=== PATIENT | female | born 1985 | race Caucasian/White ===

== ENCOUNTER 2017-11-21 18:51 | Emergency (ER) | payer BC, OTHER ==
[~2017-11-21] VITALS: Ht 162.6 cm; Wt 136.5 kg
[2017-11-21 19:03] VITALS: BP 153/94
--- NOTE | 2017-11-21 19:22 | NUR ---
PT.AMBULATED TO ER [facility]
--- NOTE | 2017-11-21 19:30 | NUR ---
Patient being evaluated by [facility] ASSISTANT at bedside.
--- NOTE | 2017-11-21 19:56 | NUR ---
Patient discharged with v/s stable. Written and verbal after care instructions given and explained. Patient alert, oriented and verbalized understanding of instructions. Ambulatory with steady gait. All questions addressed prior to discharge. ID band removed. Patient advised to follow up with PMD. Rx of MOTRIN 800 MG, ROBAXIN 500 MG given. Patient educated on indication of medication including possible reaction and side effects. Opportunity to ask questions provided and answered.
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
[2017-11-21 19:57] VITALS: BP 130/85
== END 2017-11-21 19:56 | disposition home or self-care (01) ==
LOC: MED 18:51
DX: S16.1XXA Strain of muscle, fascia and tendon at neck level, initial encounter (principal); S46.912A Strain of unspecified muscle, fascia and tendon at shoulder and upper arm level, left arm, initial encounter; R68.84 Jaw pain; V43.52XA Car driver injured in collision with other type car in traffic accident, initial encounter; Y93.I9 Activity, other involving external motion; Y92.488 Other paved roadways as the place of occurrence of the external cause; Y99.8 Other external cause status
CPT/HCPCS: 99283